=== PATIENT | male | born 1970 | race Caucasian/White ===

== ENCOUNTER 2017-08-23 05:22 | Emergency (ER) | payer BC ==
[~2017-08-23] VITALS: Ht 195.6 cm; Wt 136.1 kg
[~2017-08-23 05:22] MED LIST: NORCO 5-325 TA1 EACH PO
[2017-08-23] MEDS ORDERED: TYLENOL325 MG PO (05:28)
[2017-08-23 06:02] LABS: INFLUENZA A ANTIGEN None Detected (None Detect)
[2017-08-23] MEDS ORDERED: HYDROCODONE-AP1 EAC6 PO (06:09)
[2017-08-23] MEDS ORDERED: TAMIFLU75 MG PO (06:09)
[2017-08-23 06:17] VITALS: BP 133/87
== END 2017-08-23 06:18 | disposition home or self-care (01) ==
LOC: M.ERS 05:22
PROVIDERS: Emergency Medicine
DX: J11.1 Influenza due to unidentified influenza virus with other respiratory manifestations (principal)